=== PATIENT | female | born 1965 | race Caucasian/White ===

== ENCOUNTER 2019-05-03 21:25 | Observation (INO) ==
[2019-05-03] MEDS ORDERED: ASPIRIN PO ONE (21:35)
--- NOTE | 2019-05-03 21:41 | EKG Report ---
Test Performed on : 05/03/2019 9:38:50 PM Test Reason : CHEST PAIN HTN Blood Pressure : / mmHG Vent. Rate : 080 BPM Atrial Rate : 080 BPM P-R Int : 184 ms QRS Dur : 068 ms QT Int : 358 ms P-R-T Axes : 026 016 116 degrees QTc Int : 412 ms Normal sinus rhythm. T wave abnormality, consider lateral ischemia Abnormal ECG When compared with ECG of 18-OCT-2017 20:29, Criteria for Septal infarct are no longer present Unconfirmed Result
[2019-05-03] MEDS ORDERED: NITROGLYCERIN TOP ONE (21:54)
--- NOTE | 2019-05-03 21:59 | PROVIDER DOCUMENTATION ---
HPI-Chest Pain - General Chief Complaint: Chest Pain Stated Complaint: CHEST PAIN, N/V Time Seen by Provider: 05/03/19 21:54 Source: patient Allergies/Adverse Reactions: Patient Allergies Allergy/AdvReac Type Severity Reaction Status Date / Time levofloxacin [From Levaquin] Allergy FLUSHING Verified 10/18/17 22:29 meperidine [From Demerol] Allergy FLUSHING Verified 10/18/17 22:29 nalbuphine [From Nubain] Allergy FLUSHING Verified 10/18/17 22:29 Home Medications: Home Medication List Medication Instructions Recorded Confirmed Last Taken Type Albuterol Sulfate [Proair Hfa] 8.5 gm IH PRN PRN 10/18/17 05/03/19 Unknown History Clonazepam [Klonopin] 1 mg PO BID PRN 10/18/17 05/03/19 Unknown History Hydrocodone/Acetaminophen [[place] 1 each PO Q8-12H PRN PRN 10/18/17 05/03/19 Unknown History 7.5-325 Tablet] Levothyroxine Sodium [Synthroid] 100 microgm PO QAM 10/18/17 05/03/19 Unknown History Levothyroxine Sodium [Synthroid] 112 mcg PO QAM 10/18/17 05/03/19 Unknown History Lisinopril/Hydrochlorothiazide 1 each PO QAM 10/18/17 05/03/19 Unknown History [Lisinopril-Hctz 20-25 mg Tab] Metformin [Glucophage] 1,000 mg PO BID 10/18/17 05/03/19 Unknown History Sitagliptin [Januvia] 100 mg PO QAM 10/18/17 10/18/17 Unknown History Famotidine [Pepcid] 150 mg PO BID tablet 10/19/17 05/03/19 Unknown Rx Omeprazole 40 mg PO QAM 10/19/17 10/19/17 Unknown History Insulin Humulin 70/30 [Humulin 50 units SQ DAILY 05/03/19 05/03/19 Unknown History 70/30] Sitagliptin Phosphate [Januvia] 100 mg PO DAILY 05/03/19 05/03/19 Unknown History - History of Present Illness-CP Nature of Presenting Problem: Patient is a 54 year old morbidly obese white female with history of CAD (S/P PR), HTN, diabetes who presents with 810 left sided chest pressure that radiates down left arm. Followed by Dr. Chaudhary. Also complains of right arm and hand numbness for past 5 days. Severity in ED: moderate Onset/Duration: 3 days ago Timing: still present Context/Activities at Onset: reports: none Modifying Factors: improves with: nothing Nitro Today/Relief: no nitro taken today Aspirin Treatment Today: no aspirin today Similar Symptoms Previously?: Yes Recently Seen Here or By Another Healthcare Provider: No Review of Systems - Adult - REVIEW OF SYSTEMS - ADULT Constitutional: denies: chills, fever Eyes: denies: blurred vision Ears, Nose, Mouth & Throat: denies: throat pain Cardiovascular: reports: chest pain Respiratory: denies: shortness of breath Gastrointestinal: denies: abdominal pain, nausea, vomiting Genitourinary: reports: no symptoms reported. denies: dysuria Musculoskeletal: reports: no symptoms reported Integumentary: reports: no symptoms reported Neurological: reports: numbness Psychiatric: reports: anxiety Hematologic/Lymphatic: reports: see HPI Allergic/Immunologic: reports: no symptoms reported All Other Systems: Reviewed and Negative Past History - Adult - PAST MEDICAL HISTORY-ADULT Review of Records: reports: Old Records Reviewed, Nursing Assessment Review, Medications Reviewed, Social history reviewed & non-contributory. Major Childhood Illnesses: reports: denies history Cardiovascular: reports: cardiac disease, CAD, PR Respiratory: reports: denies history Gastrointestinal: reports: denies history Obstetrical/Gynecological: reports: denies history Genitourinary: reports: denies history Musculoskeletal: reports: denies history Neurological: reports: denies history Endocrine/Immune: reports: Diabetes Other Conditions: reports: denies history - IMMUNIZATION STATUS Childhood Immunizations: See Nurse Assessment Flu Vaccine: See Nurse Assessment - FAMILY HISTORY Family History: reviewed, not pertinent - SOCIAL HISTORY Smoking: denies Substance Use: denies Alcohol Use Frequency: occasionally Living Situation: family Physical Exam-General - PHYSICAL EXAM-ADULT Initial Vital Signs Reviewed: Yes - CONSTITUTIONAL General Appearance: alert, obese, other (nondiaphoretic) - EYES Eyes: other (clear) - HEAD, EARS, NOSE, MOUTH & THROAT HENMT: moist mucous membranes, normal ENT inspection - NECK Neck: full range of motion, supple - RESPIRATORY Respiratory: lungs clear - CARDIOVASCULAR Cardiovascular: regular rate, rhythm - GASTROINTESTINAL (ABDOMEN) Abdominal Exam: non tender, soft - LYMPHATIC Lymphatic: no adenopathy - MUSCULOSKELETAL Back Exam: normal inspection, no CVA tenderness Extremity: normal range of motion, non-tender Peripheral Pulses: radial (R): 2+, radial (L): 2+ - SKIN Integumentary: normal color, normal turgor, warm/dry - NEUROLOGIC Neurologic: grossly normal - PSYCHIATRIC Psych/Mental Status: oriented x 3, anxious - HEART Score HEART Score: History: Moderately Suspicious HEART Score: ECG: Normal HEART Score: Age: 45-65 Years HEART Score: Risk Factors for Atherosclerotic Disease: > or = 3 Risk Factors or History of Atherosclerotic Disease HEART Score: Troponin: < or = Normal Limit Total HEART Score:: 4 Progress - PLAN OF CARE/RESULTS Progress/Plan/Lab Results: Vital Signs - 8 hr 05/03/19 21:28 05/03/19 22:00 Temperature 98 F Pulse Rate 77 80 Respiratory Rate 18 25 H Blood Pressure 193/116 157/86 O2 Sat by Pulse Oximetry 100 95 Laboratory Results - last 24 hr 05/03/19 05/03/19 05/03/19 22:19 22:19 22:19 WBC 6.84 RBC 4.41 Hgb 12.9 Hct 35.7 L MCV 81.0 MCH 29.3 MCHC 36.1 RDW Std Deviation 12.2 Plt Count 125 L MPV 10.2 Immature Gran % (Auto) 0.4 Neut % (Auto) 52.7 Lymph % (Auto) 37.3 [place] % (Auto) 6.7 Eos % (Auto) 2.0 Baso % (Auto) 0.9 H Immature Gran # (Auto) 0.03 Neut # (Auto) 3.60 Lymph # (Auto) 2.55 [place] # (Auto) 0.46 Eos # (Auto) 0.14 Baso # (Auto) 0.06 PT INR D-Dimer, Quantitative Sodium Potassium Chloride Carbon Dioxide Anion Gap BUN Creatinine Estimated GFR/1.73 m2 BUN/Creatinine Ratio Glucose Calculated Osmolality Calcium Magnesium Total Bilirubin AST ALT Alkaline Phosphatase Creatine Kinase 128 Troponin T < 0.010 Khb-T-Odhpgtppnnd Pept Total Protein Albumin Globulin Albumin/Globulin Ratio 05/03/19 05/03/19 05/03/19 22:19 22:19 22:19 WBC RBC Hgb Hct MCV MCH MCHC RDW Std Deviation Plt Count MPV Immature Gran % (Auto) Neut % (Auto) Lymph % (Auto) [place] % (Auto) Eos % (Auto) Baso % (Auto) Immature Gran # (Auto) Neut # (Auto) Lymph # (Auto) [place] # (Auto) Eos # (Auto) Baso # (Auto) PT 14.1 INR 1.04 D-Dimer, Quantitative < 0.27 Sodium 135 L Potassium 4.0 Chloride 95 L Carbon Dioxide 26 Anion Gap 14 BUN 11 Creatinine 0.7 Estimated GFR/1.73 m2 > 60 BUN/Creatinine Ratio 16 Glucose 357 H Calculated Osmolality 284 Calcium 9.2 Magnesium 1.3 L Total Bilirubin 0.40 AST 19 ALT 27 Alkaline Phosphatase 101 Creatine Kinase Troponin T [id number] Pept 57 Total Protein 6.8 Albumin 4.1 Globulin 3.0 Albumin/Globulin Ratio 2.0 Orders Category Date Time Status Nursing- Obtain EKG ONCE Care 05/03/19 21:35 Active CHEST-2 VIEWS [RAD] Stat Exams 05/03/19 21:35 Taken CBC WITH DIFF [HEME] Stat Lab 05/03/19 22:19 Completed CK PROFILE [SP CHEM] Stat Lab 05/03/19 22:19 Completed COMPREHENSIVE METABOLIC PANEL [CHEM] Stat Lab 05/03/19 22:19 Completed D-DIMER [COAG] Stat Lab 05/03/19 22:19 Completed MAGNESIUM [CHEM] Stat Lab 05/03/19 22:19 Completed PRO B-NATRIURETIC PEPTIDE Stat Lab 05/03/19 22:19 Completed PROTIME WITH INR [COAG] Stat Lab 05/03/19 22:19 Completed TROPONIN T Stat Lab 05/03/19 22:19 Completed Aspirin Med 05/03/19 21:35 Discontinued 325 mg PO NOW ONE Nitroglycerin Med 05/03/19 21:54 Discontinued 1 inch TOP NOW ONE Oxygen Device Stat Oth 05/03/19 22:04 Active EKG [EKG] Stat Ther 05/03/19 21:35 Draft Result Diagrams: 05/03/19 22:19 05/03/19 22:19 - EKG 1 Time of EKG reading by physician:: 21:39 EKG Read and Signed by:: Wade Bose Rate: 80 Rhythm: NSR [place]: normal [place] Interval: normal ST Wave: non-specific ST changes - CONSULTS/PCP/HOSPITALIST Notification #1 *Consult/PCP/Hospitalist*: Dr. Castro, hospitalist Time Discussed: 23:55 Consult Disposition: Admit Departure - Departure Date of Disposition Decision: 05/03/19 Time of Disposition Decision: 23:57 DIAGNOSIS: Chest pain Qualifiers: Chest pain type: unspecified Qualified Code(s): R07.9 - Chest pain, unspecified CAD (coronary artery disease) Qualifiers: Coronary Disease-Associated Artery/Lesion type: unspecified vessel or lesion type [place] vs. transplanted heart: [place] heart Associated angina: with unspecified angina Qualified Code(s): I25.119 - Atherosclerotic heart disease of [place] coronary artery with unspecified angina pectoris Disposition: ADMITTED INPATIENT 09 Certified Medical Emergency: Emergent Condition: Stable Referrals and Follow-Ups: Indigo Gonzales [Primary Care Provider] - - Critical Care Note This patient required my direct & personal management of CC.: No Attestation - Physician/ LILLY Attestation Patient care was provided by Advanced Practice Provider:: No The physician spent face to face time with patient:: Yes Advanced Practice Provider documentation review:: Supervising physician onsite and consulted in the evaluation and care of this patient. The physician did have a face to face encounter with the patient.
[2019-05-03 22:38] LABS: BASO# 0.06 X1000 (0.0-0.2); BASO% 0.9 % (0.0-0.8); EOS# 0.14 X1000 (0.0-0.7); HEMATOCRIT 35.7 % (37.0-47.0); HEMOGLOBIN 12.9 g/dL (12.0-16.0); IMM GRAN# 0.03 X1000 (0.0-0.04); IMM GRAN% 0.4 % (0.0-0.5); LYMPH# 2.55 X1000 (1.2-3.4); LYMPH% 37.3 % (20.5-51.1); MCH 29.3 PG (27-31); MCHC 36.1 g/dL (33-37); MONO# 0.46 X1000 (0.11-0.59); MONO% 6.7 % (1.7-9.3); MPV 10.2 FL (7.4-10.4); NEUT% 52.7 % (42.2-75.2); PLT 125 X1000 (130-400); RBC 4.41 XMIL (4.2-5.4); RDW 12.2 % (11.5-14.5); WBC 6.84 X1000 (4.8-10.8)
[2019-05-03 22:58] LABS: INR 1.04; PROTIME 14.1 Seconds (11.0-16.0)
[2019-05-03 22:59] LABS: AGAP 14; ALBUMIN 4.1 g/dL (3.5-5.0); ALKALINE PHOSPHATASE 101 U/L (32-104); BUN 11 mg/dL (8-22); CALCIUM 9.2 mg/dL (8.8-10.2); CHLORIDE 95 mmol/L (98-107); COSMO 284; CREATININE 0.7 mg/dL (0.5-0.9); ESTIMATED GFR > 60; GLUCOSE 357 mg/dL (70-104); GOT 19 U/L (10-30); GPT 27 U/L (10-36); MAGNESIUM 1.3 mg/dL (1.5-2.7); SODIUM 135 mmol/L (136-145); TCO2 26 mmol/L (25-35); TOTAL PROTEIN 6.8 g/dL (6.3-8.3)
[2019-05-03 23:00] LABS: D-DIMER < 0.27 ug/mLFEU (0.0-0.52)
[2019-05-04] MEDS ORDERED: ZOFRAN IV PRN (00:02)
[2019-05-04] MEDS ORDERED: MORPHINE IV PRN (00:02)
--- NOTE | 2019-05-04 01:46 | EKG Report ---
Test Performed on : 05/04/2019 01:37:50 AM Test Reason : pain Blood Pressure : / mmHG Vent. Rate : 076 BPM Atrial Rate : 076 BPM P-R Int : 184 ms QRS Dur : 070 ms QT Int : 376 ms P-R-T Axes : 023 017 117 degrees QTc Int : 423 ms Normal sinus rhythm. T wave abnormality, consider lateral ischemia Abnormal ECG When compared with ECG of 03-MAY-2019 21:38, (Unconfirmed) No significant change was found Unconfirmed Result
--- NOTE | 2019-05-04 05:33 | Diag Imaging Result Doc PS360 ---
EXAM: CHEST-2 VIEWS HISTORY: CHEST PAIN TECHNIQUE: Chest two views COMPARISON: 09/01/2018 FINDINGS: The lungs are well expanded. The heart is not enlarged. The vessels are not distended. There are no infiltrates. No pleural effusions. The right hemidiaphragm is elevated. IMPRESSION: No acute abnormality. Electronically signed by oMntana Moctezuma 05/04/2019 5:30 AM
[2019-05-04] MEDS ORDERED: ZOFRAN IV ONE (07:39)
[2019-05-04] MEDS ORDERED: MORPHINE IV ONE (07:39)
--- NOTE | 2019-05-04 08:56 | EKG Report ---
Test Performed on : 05/04/2019 08:49:28 AM Test Reason : pain Blood Pressure : / mmHG Vent. Rate : 066 BPM Atrial Rate : 066 BPM P-R Int : 186 ms QRS Dur : 070 ms QT Int : 414 ms P-R-T Axes : 022 016 120 degrees QTc Int : 434 ms Normal sinus rhythm. T wave abnormality, consider lateral ischemia Abnormal ECG When compared with ECG of 04-MAY-2019 01:37, (Unconfirmed) No significant change was found Unconfirmed Result
--- NOTE | 2019-05-04 09:04 | ED EKG INTERP ---
This chart was entered by Ne Howard Scribe, acting as scribe for Dung Schmidt MD. EKG Interpretation - EKG Time of EKG reading by physician:: 08:49 EKG Read and Signed by:: Dung Schmidt EKG Interpretation (*Must complete 3 of following elements*): Abnormal Rate: 66 Rhythm: msr [place]: normal QRS: normal [place] Interval: normal ST Wave: normal Comments: T wave abnormality, consider lateral ischemia Attestation - Physician/ LILLY Attestation Patient care was provided by Advanced Practice Provider:: No The physician spent face to face time with patient:: Yes Advanced Practice Provider documentation review:: Supervising physician onsite and consulted in the evaluation and care of this patient. The physician did have a face to face encounter with the patient. This chart was documented by the indicated scribe, (Ne Howard Scribe) and accurately reflects the services I performed and decisions made by me, Dung Schmidt MD, as attested by the provider's signature.
[2019-05-04] MEDS ORDERED: MOTRIN PO ONE (12:00)
[2019-05-04] MEDS ORDERED: MAGNESIUM SULFATE 2 GM/S.W.I. 2 GM/50 ML IVPB IV ONE (13:19)
[2019-05-04] MEDS ORDERED: KLONOPIN PO PRN (13:28)
[2019-05-04] MEDS ORDERED: VENTOLIN HFA INH PRN (13:28)
[2019-05-04] MEDS ORDERED: NORCO-7.5 PO PRN (13:28)
[2019-05-04] MEDS ORDERED: MAGNESIUM SULFATE 4 GM/S.W.I. 4 GM/100 ML IVPB IV ONE (13:32)
--- NOTE | 2019-05-04 14:43 | HISTORY AND PHYSICAL ---
PRIMARY CARE PHYSICIAN: Indigo Gonzales MD CHIEF COMPLAINT: Left-sided chest pain x3 days intermittently that progressively worsened. HISTORY OF PRESENTING ILLNESS: This is a 54-year-old female, who presents to [facility] ER with complaints of chest pain, left-sided, radiating down her left arm at times, that had been intermittent for the past 3 days. She also states that she has been having a posterior headache and some numbness in her right hand, but has a history of some neuropathy, diabetes, hypertension, and coronary artery disease. She states she also has anxiety, and her workup in the emergency room showed 3 sets of cardiac enzymes that were negative. Blood pressure on arrival was 193/116, currently it is 123/58, so she is being admitted for further evaluation and treatment. PAST MEDICAL HISTORY: [place], CAD, COPD, hypertension, hypothyroidism, and diabetes type 2. PAST SURGICAL HISTORY: Bilateral tubal ligation and a thyroid goiter. FAMILY HISTORY: Heart disease in her mother and father. SOCIAL HISTORY: She currently lives with family. Denies any tobacco, alcohol, or illicit drug use. ALLERGIES: To Levaquin, meperidine, and nalbuphine. HOME MEDICATIONS: She takes ProAir inhalation p.r.n., Klonopin 1 mg p.o. b.i.d. p.r.n., Pepcid 150 mg p.o. b.i.d., [place] 7.5 one p.o. every 8 to 12 hours p.r.n., Humulin 70/30 at 50 units subcutaneous daily, Synthroid 100 mcg p.o. daily along with 112 mcg p.o. daily, lisinopril/hydrochlorothiazide 20 mg/25 mg 1 p.o. q.a.m., Glucophage 1000 mg p.o. b.i.d., omeprazole 40 mg p.o. q.a.m., and Januvia 100 mg p.o. daily. DIAGNOSTIC STUDIES: White blood cell count of 6.84, hemoglobin 12.9, hematocrit 35.7, platelets 125,000. PT 14.1 and INR of 1.04 with a D-dimer of less than 0.27. Sodium 135, potassium 4, chloride 95, CO2 of 26, BUN of 11, creatinine 0.7, glucose 357, magnesium 1.3. Cardiac enzymes x3 sets have been negative. Chest x-ray showed no acute abnormality. EKG on arrival showed normal sinus rhythm at 80. REVIEW OF SYSTEMS: She denied any fever, chills, blurred vision, dizziness. She is positive for a posterior headache, positive for chest pain that radiated to her left arm. She denied any shortness of breath, abdominal pain, constipation, diarrhea, nausea/vomiting, or burning or hurting with urination. PHYSICAL EXAMINATION: On arrival, she had a temperature of 98 degrees, pulse 77, respirations 18, blood pressure 193/116, saturating 100% on room air. Currently, her blood pressure has come down to 123/58. GENERAL: This is a 54-year-old female, who is lying in the bed and answers questions appropriately. HEMNT: Normocephalic, atraumatic. Normal ENT inspection. Oropharynx and nares are clear. EYES: Pupils are equal, round, and reactive to light and accommodation. Extraocular movements are intact. NECK: Normal inspection. Normal range of motion. LUNGS: Clear to auscultation bilaterally with equal lung expansion and chest wall movement. HEART: With regular rate and rhythm. No murmurs, rubs, or gallops. ABDOMEN: Soft, nontender, nondistended. Bowel sounds are present x4 quadrants. MUSCULOSKELETAL: She has 5/5 strength x4 extremities. NEUROLOGICAL: The cranial nerves 2 through 12 appear grossly intact. ASSESSMENT: 1. Chest pain. 2. Hypomagnesemia. 3. Headache. 4. Diabetes, type 2. OUR PLAN: She was admitted to the medical unit, placed on telemetry and O2 per protocol. We will supplement her magnesium with 4 g of magnesium sulfate IV now. For her complaints of headache, I gave her an 800 mg ibuprofen x1. I am going to check a cervical spine complete x-ray to rule out any cervical radiculopathy that may be causing the right hand to have numbness. This certainly could be due to her neuropathy. She has been ruled out from a cardiac standpoint with 3 negative troponins. I certainly think that she could have an outpatient stress test, but this is most likely looking to be anxiety and stress related. She had a HEART score of 4. We will continue her home medications, place her on a diabetic diet, and further orders after seen by attending. Dictated by AMERICA Mcgill for Colby Escobedo MD Addendum: Patient seen and examined by myself. Agree with AMERICA note. It reflects my assessment and plan. Patient is being admitted to hospital for chest pain. Will check troponins and if normal she can be discharged. She will be on telemetry. cc: AMERICA Mcgill MD Faye Wilson, MD [facility] CENTERChrista
[2019-05-04 15:38] VITALS: BP 134/70
--- NOTE | 2019-05-04 15:48 | Diag Imaging Result Doc PS360 ---
EXAM: CERVICAL SPINE COMPLETE HISTORY: Right hand numbness, [place] TECHNIQUE: AP and lateral with obliques, five views COMPARISON: None. FINDINGS: There is good alignment to the cervical spine. No precervical soft tissue swelling. No subluxation. Tiny degenerative bone spurring at C5-6. Spherical piece of metal in the lateral right neck. IMPRESSION: Mild degenerative changes at C5-6. Electronically signed by [place] Moctezuma 05/04/2019 3:46 PM
[2019-05-04] MEDS ORDERED: PEPCID PO SCH (17:00)
[2019-05-04] MEDS ORDERED: GLUCOPHAGE PO SCH (17:00)
[2019-05-05] MEDS ORDERED: PRILOSEC PO SCH (07:00)
[2019-05-05] MEDS ORDERED: HUMULIN 70/30 SUBQ SCH (09:00)
[2019-05-05] MEDS ORDERED: PRINIVIL PO SCH (09:00)
[2019-05-05] MEDS ORDERED: SYNTHROID PO SCH ×2 (09:00)
[2019-05-05] MEDS ORDERED: HYDROCHLOROTHIAZIDE PO SCH (09:00)
[2019-05-05] MEDS ORDERED: JANUVIA PO SCH (09:00)
--- NOTE | 2019-05-05 22:01 | DISCHARGE SUMMARY ---
ADMISSION DATE: 05/04/2019 DISCHARGE DATE: 05/04/2019 PRIMARY CARE PHYSICIAN: Dr. Indigo Gonzales. ADMISSION DIAGNOSES: 1. Chest pain. 2. Hypomagnesemia. 3. Headache. 4. Diabetes type 2. DISCHARGE DIAGNOSES: 1. Chest pain, resolved, ruled out by cardiac enzymes. 2. Hypomagnesemia, supplemented. 3. Headache, improved. 4. Diabetes type 2. SUMMARY OF FINDINGS: This is a 54-year-old female who presented to the ER with complaints of left- sided chest pain radiating down her left arm that had been intermittent for the past 3 days. States she has had a posterior headache and some numbness in her right hand, but has a history of neuropathy, diabetes, hypertension, and coronary artery disease. She also states that she does have stress and anxiety. Her 3 sets of cardiac enzymes were negative. We gave her ibuprofen 800 mg p.o. x1. We did a cervical spine x-ray that showed mild degenerative changes at C5 to 6, and it was then felt that she could safely be discharged home. She will follow up with Cardiology on 05/30/2019 at 11:00 a.m. and with her primary care physician in 1 to 2 weeks. DISCHARGE MEDICATIONS: Discharge medications will include ProAir inhalation p.r.n., aspirin 325 mg p.o. daily, Klonopin 1 mg p.o. b.i.d. p.r.n., Pepcid 150 mg p.o. b.i.d., [place] 7.5 one p.o. every 8 to 12 hours p.r.n., Humulin 70/30 at 50 units subcutaneous daily, Synthroid 100 mcg p.o. q.a.m. and 112 mcg p.o. q.a.m., lisinopril/hydrochlorothiazide 20/25 one p.o. q.a.m., metformin 1000 mg p.o. b.i.d., omeprazole 40 mg p.o. q.a.m., and Januvia 100 mg p.o. daily. TIME SPENT: This is a 35-minute discharge. Dictated by AMERICA Mcgill for Colby Escobedo MD cc: AMERICA Mcgill MD Ashish K. Basu, MD Dr. Wilson
== END 2019-05-04 17:01 | disposition home or self-care (01) ==
LOC: P.ED 21:25 → P.EDIPHOLD 21:25 → P.MEDSURG 05-04 09:21
PROVIDERS: ATTEND Internal Medicine
CPT/HCPCS: 36415; 71020; 71046; 72050; 80053; 82550; 82948; 83735; 83880; 84484; 85025; 85379; 85610; 93005; 94761; A9270; J2270; J2405; J3475; XXXXX